=== PATIENT | male | born 1965 | race Two or more races ===

== ENCOUNTER 2018-09-29 22:21 | Emergency (ER) | payer OTHER ==
[2018-09-29] MEDS ORDERED: TOPICAL LIDOCAINE W/ EPI 5 ML TOP ONE (22:52)
[2018-09-29] MEDS ORDERED: CEPHALEXIN 500 MG CAPSULE PO STA (22:53)
--- NOTE | 2018-09-29 22:57 | Emergency Department Record ---
History of Present Illness - General Chief Complaint: Wound, puncture Stated Complaint: PUNCTURE WOUND RT SIDE OF NECK Time Seen by Provider: 09/29/18 22:31 Source: Patient Mode of Arrival: Ambulatory Limitations: No limitations - History of Present Illness Initial Commments: The patient is here due to suffering a PW to the R side of the neck about 6 alexi rs ago. He was cleaning up branches in a yard and one snapped and punctured him over the R side of the neck. He has cleaned it up well and his Td is UTD. There has been no voice changes, significant bleeding or swelling. Onset/Timin -: Hour(s) Location: Neck Place: Home Context: Accidental Associated Symptoms: None Treatments Prior to Arrival: Bandage - [place] Coma Scale Eye Response: (4) Open spontaneously Motor Response: (6) Obeys commands Verbal Response: (5) Oriented [place] Total: 15 - Related Data Hx Tetanus Toxoid Vaccination: Yes Patient Tetanus UTD (within 5 yrs): Yes Home Medications Medication Instructions Recorded Confirmed Last Taken Oxcarbazepine [Trileptal] 300 mg PO TID 09/29/18 09/29/18 Unknown Previous Rx's Medication Instructions Recorded Cephalexin [Keflex] 500 mg PO QID #28 cap 09/29/18 Allergies Allergy/AdvReac Type Severity Reaction Status Date / Time doxycycline Allergy Mild itchiness Verified 09/29/18 22:30 Iodinated Contrast- Oral and Allergy Mild raspiness Verified 09/29/18 22:30 IV Dye Travel Screening - Travel/Exposure Within Last 30 Days Have you traveled within the last 30 days?: No - Travel/Exposure Within Last Year Have you traveled outside the [place] in the last year?: No - Travel Symptoms Symptom Screening: None Review of Systems Constitutional: Denies: Chills, Fever Eyes: Denies: Eye discharge ENT: Denies: Congestion Respiratory: Denies: Cough, Dyspnea Past Medical History - SOCIAL HISTORY Smoking Status: Never smoker Alcohol Use: Rare Drug Use: None - RESPIRATORY Hx Respiratory Disorders: No - CARDIOVASCULAR Hx Cardio Disorders: No - GI Hx GI Disorders: Yes Hx Reflux: Yes - ENDOCRINE Hx Endocrine Disorders: Yes Comment:: congenital adrenal hyperplasia - MUSCULOSKELETAL Hx Musculoskeletal Disorders: No - PSYCH Hx Psych Problems: Yes Hx Anxiety: Yes - HEMATOLOGY/ONCOLOGY Hx Cancer: Yes (surgery) Family Medical History Any Significant Family History?: No Physical Exam - General General Appearance: Alert, Oriented x3, Cooperative, No acute distress - Head Head exam: Atraumatic, Normocephalic Image of Face/Head: 1 - Area of PW. - Eye Eye exam: Normal appearance, PERRL - ENT ENT exam: Normal exam - Neck Neck exam: Full ROM, Tenderness. negative: Normal inspection (There is a 5x5 mm puncture wound to the R side of the neck. There is no swelling, bruising, hematoma or erythema present.), Lymphadenopathy - Respiratory Respiratory exam: Normal lung sounds bilaterally. negative: Respiratory distress - Cardiovascular Cardiovascular Exam: Regular rate, Normal rhythm, Normal heart sounds Course Vital Signs 09/29/18 22:26 Temperature 98.6 F Pulse Rate [ 65 Left] Respiratory 16 Rate Blood Pressure 121/75 [Left Arm] Pulse Ox 94 L - Reevaluation(s) Reevaluation #1: Procedure note: The R neck skin flap was anesth. with first TLE then Lido 1% with Epi. The wound was cleansed with betadine and sterile saline and probed. It does not go thru the dermis and clearly does not enter the underlying muscle layer. There was no bleeding and a very minimal amount of dirt was removed. The skin flap over the PW was removed due to the flap being very irregular and " ratty". The PW was then covered in Abx ointment and a bandaid. 09/29/18 23:08 Disposition Disposition: Discharge Clinical Impression: Puncture wound Disposition: Home, Self-Care Condition: (2) Stable Instructions: Puncture Wound (ED) Additional Instructions: Please keep dry for 2 days then wash gently daily and dry. Keep covered during the day and take the Keflex as directed. Please return to the ER for any signs of infection. Prescriptions: Cephalexin [Keflex] 500 mg PO QID #28 cap Forms: Patient Portal Access Time of Disposition: 23:11 Quality - Quality Measures Quality Measures: N/A - Blood Pressure Screening View Details: Yes Does Patient Have Any of the Following: No Blood Pressure Classification: Pre-Hypertensive BP Reading Systolic Measurement: 121 Diastolic Measurement: 75 Screening for High Blood Pressure: < Pre-Hypertensive BP, F/U Documented > [G8950] Pre-Hypertensive Follow-up Interventions: Referral to alternative/primary care provider.
== END 2018-09-29 23:19 | disposition home or self-care (01) ==
LOC: ER 22:21
DX: S11.84XA Puncture wound with foreign body of other specified part of neck, initial encounter (principal); W22.8XXA Striking against or struck by other objects, initial encounter; Y92.007 Garden or yard of unspecified non-institutional (private) residence as the place of occurrence of the external cause
CPT/HCPCS: 99283

== ENCOUNTER 2019-01-29 18:36 | Emergency (ER) | payer OTHER ==
[2019-01-29] MEDS: DIPHENHYDRAMINE HCL 50 MG/ML VIAL IVP ONE (18:44)
--- NOTE | 2019-01-29 18:44 | Emergency Department Record ---
History of Present Illness - General Stated complaint: BEE STINGS Time Seen by Provider: 01/29/19 18:38 Source: Patient Mode of Arrival: Ambulatory Limitations: No limitations - History of Present Illness Initial Comments: 54 yo male presents to ED for evaluation following numerous (8-9) bee stings to the extremities, right face x 1 that occurred approximately 30 minutes ago. Patient denies previous bee sting reactions, but reports "burning" at the sites of his bee stings, reports that his throat feels "raspy". Patient denies wheezing, difficulty in breathing, or throat swelling symptoms. Patient does take hydrocortisone daily for congenital adrenal hyperplasia. MD Complaint: Allergic reaction Onset/Timin -: Minutes(s) Exposure: Insect bite Symptoms: Itching, Rash, Hoarseness Severity: Moderate Treatment Prior to Arrival: None Previous Allergy History: None - Related Data Home Medications Medication Instructions Recorded Confirmed Last Taken Meloxicam 7.5 mg PO DAILY 01/29/19 01/29/19 1 Day Ago ~01/28/19 Previous Rx's Medication Instructions Recorded Prednisone [Prednisone 20Mg] 20 mg PO TID #12 tab 01/29/19 Allergies Allergy/AdvReac Type Severity Reaction Status Date / Time doxycycline Allergy Mild itchiness Verified 01/29/19 18:58 Iodinated Contrast Media Allergy Mild raspiness Verified 01/29/19 18:58 Review of Systems Constitutional: Denies: Chills, Fever, Malaise, Night sweats Eyes: Denies: Eye discharge, Eye pain ENT: Reports: Other ("raspy" throat). Denies: Congestion, Ear pain, Epistaxis Respiratory: Denies: Cough, Dyspnea Cardiovascular: Denies: Chest pain, Dyspnea on exertion Endocrine: Denies: Fatigue, Heat or cold intolerance Gastrointestinal: Denies: Abdominal pain, Nausea, Vomiting Genitourinary: Denies: Incontinence, Retention Musculoskeletal: Denies: Arthralgia, Back pain Skin: Reports: Change in color, Rash. Denies: Bruising, Change in hair/nails Neurological: Denies: Abnormal gait, Confusion, Headache, Tingling, Tremors Psychiatric: Denies: Anxiety Hematological/Lymphatic: Denies: Anemia, Blood Clots Past Medical History - SOCIAL HISTORY Smoking Status: Never smoker Drug Use: None - RESPIRATORY Hx Respiratory Disorders: No - CARDIOVASCULAR Hx Cardio Disorders: No - GI Hx GI Disorders: Yes Hx Reflux: Yes - ENDOCRINE Hx Endocrine Disorders: Yes Comment:: congenital adrenal hyperplasia - MUSCULOSKELETAL Hx Musculoskeletal Disorders: No - PSYCH Hx Psych Problems: Yes Hx Anxiety: Yes - HEMATOLOGY/ONCOLOGY Hx Cancer: Yes (surgery) Physical Exam - General General Appearance: Alert, Oriented x3, Cooperative, Mild distress Limitations: No limitations - Head Head exam: Atraumatic, Normocephalic, Normal inspection Head exam detail: Other (Mild STS to the right face at the site of a bee sting). negative: Abrasion, Contusion, Cobb's sign, General tenderness, Hematoma, Laceration - Eye Eye exam: Normal appearance. negative: Conjunctival injection, Periorbital swelling, Periorbital tenderness, Scleral icterus - ENT Ear exam: negative: Auricular hematoma, Auricular trauma Nasal Exam: negative: Active bleeding, Discharge, Dried blood, Foreign body Mouth exam: negative: Drooling, Laceration, Muffled voice, Tongue elevation Throat exam: Other ([place] appears normal on examination) - Neck Neck exam: Normal inspection. negative: Meningismus, Tenderness - Respiratory Respiratory exam: Normal lung sounds bilaterally. negative: Respiratory distress, Rhonchi, Stridor, Wheezes - Cardiovascular Cardiovascular Exam: Regular rate, Normal rhythm, Normal heart sounds - GI/Abdominal GI/Abdominal exam: Soft. negative: Rebound, Rigid, Tenderness - Rectal Rectal exam: Deferred - exam: Deferred - Extremities Extremities exam: Normal inspection. negative: Pedal edema, Tenderness - Back Back exam: Denies: CVA tenderness (R), CVA tenderness (L) - Neurological Neurological exam: Alert, Normal gait, Oriented X3 - Psychiatric Psychiatric exam: Normal affect, Normal mood - Skin Skin exam: Erythema, Rash Type of lesion: Bite/sting Distribution of rash: Generalized Course - Reevaluation(s) Reevaluation #1: 01/29/19 18:43 Patient was seen and examined immediately upon arrival IV Solumedrol and Benadryl ordered, will place on monitor as well and observe very closely for any worsening symptoms or the need for epinephrine should his symptoms worsen. Patient and his SO are in agreement with the plan of care as discussed. Reevaluation #2: 01/29/19 19:10 Patient was reassessed, reports that his symptoms are improving. Will continue to monitor. Reevaluation #3: 01/29/19 20:42 Patient was reassessed, only localized reactions are present on examination, overall erythema is now resolved. Patient denies any SOB, throat swelling, or difficulty in breathing. Patient appears stable for discharge at this time. Disposition Disposition: Discharge Clinical Impression: Bee sting reaction Qualifiers: Encounter type: initial encounter Injury intent: undetermined intent Qualified Code(s): T63.444A - Toxic effect of venom of bees, undetermined, initial encounter Disposition: Home, Self-Care Condition: (2) Stable Instructions: Insect Bite or Sting (ED) Additional Instructions: Return to ED if your symptoms worsen or if you have any concerns. Benadryl, Prednisone as directed. Follow-up with your family doctor in 3-5 days as directed. Prescriptions: Prednisone [Prednisone 20Mg] 20 mg PO TID #12 tab Time of Disposition: 20:43 Quality - Quality Measures Quality Measures: N/A - Blood Pressure Screening Does Patient Have Any of the Following: No Blood Pressure Classification: Pre-Hypertensive BP Reading Systolic Measurement: 120 Diastolic Measurement: 84 Screening for High Blood Pressure: < Pre-Hypertensive BP, F/U Documented > [G8950] Pre-Hypertensive Follow-up Interventions: Referral to alternative/primary care provider.
[2019-01-29] MEDS: METHYLPREDNISOLONE PF 125MG/VIAL IVP ONE (18:45)
[2019-01-29] MEDS: 0.9 % SODIUM CHLORIDE 1000ML 1,000 ML IV SCH (18:47)
[2019-01-29] MEDS: KETOROLAC 30 MG/ML VIAL IVP ONE (18:47)
== END 2019-01-29 20:50 | disposition home or self-care (01) ==
LOC: ER 18:36
DX: T63.441A Toxic effect of venom of bees, accidental (unintentional), initial encounter (principal); R49.0 Dysphonia
CPT/HCPCS: 99284 ×2; 96374; 96375; J1885; J1200; J2930; J7030